=== PATIENT | male | born 1995 | race Caucasian/White ===

== ENCOUNTER → 2021-07-07 12:40 | Outpatient (CLI) | payer OTHER, SELFPAY ==
--- NOTE | 2021-07-07 | DI.MRI.S_ITS ---
PROCEDURE: MR KNEE RT WO CON INDICATIONS: Sprain of unspecified site of right knee, sequela TECHNIQUE: Noncontrast sagittal PD fast spin echo and T2 fast spin echo with fat saturation, sagittal 3-D FLASH with fat saturation; coronal T1 spin echo and PD fast spin echo with fat saturation, and axial PD fast spin echo with fat saturation through the knee. COMPARISON: [facility] Outside Film, MR, MR KNEE RIGHT WITHOUT CONTRAST, 07/29/2020, 17:07. [facility] Outside Film, RG, KNEE 3VW (RT), 05/01/2021, 9:20. FINDINGS: Image quality: Excellent. Menisci: The medial and lateral menisci demonstrate normal morphology and internal signal. The meniscal root ligaments appear intact. Cruciate ligaments: The anterior and posterior cruciate ligaments appear intact. Medial structures: The medial collateral ligament appears intact. Visualized portions of the pes anserinus tendons appear normal. No abnormal bursal fluid. Lateral structures: The lateral collateral ligament, long and short heads of the biceps femoris tendon appear intact. The popliteus tendon appears normal. Iliotibial band appears normal. Anterior structures: The quadriceps and patellar tendons appear intact. Patellar alignment is normal. No femoral trochlear dysplasia or ventral trochlear prominence. No edema in the infrapatellar fat pad. Bones and cartilage: No bone marrow contusions or fractures. The cartilage of the medial and lateral femorotibial compartments, as well as the patellofemoral compartment, appears normal in thickness. Joint space: There is physiologic knee joint fluid. Trace Mac's cyst. Normal appearing synovial plicae are incidentally noted. IMPRESSION: Negative knee MRI. No internal derangement. Dictated by: Alycia Slater M.D. on 07/07/2021 at 14:20 Approved by: Alycia Slater M.D. on 07/07/2021 at 14:22
== END ==
PROVIDERS: Referring Provider Orthopaedic Surgery; Visit Provider Orthopaedic Surgery
DX: S83.91XS Sprain of unspecified site of right knee, sequela (principal)
CPT/HCPCS: 73721